=== PATIENT | male | born 1995 | race Caucasian/White ===

== ENCOUNTER 2023-10-13 00:05 | Emergency (ER) | payer SELFPAY ==
[~2023-10-13] VITALS: Ht 177.8 cm; Wt 81.8 kg
[2023-10-13 00:11] VITALS: TEMP 98.2
[2023-10-13] MEDS ORDERED: NS 1,000 ML IV ONE (00:45)
[2023-10-13] MEDS ORDERED: Ondansetron 4 MG/2 ML VIAL IV ONE (00:45)
[2023-10-13] MEDS ORDERED: Meclizine 25 MG TAB PO ONE (00:45)
[2023-10-13 01:22] LABS: BASO # 0.1 K/mm3 (0.0-0.2); BASO % 0.5 % (0.0-2.0); EOS # 0.3 K/mm3 (0.0-0.7); EOS % 3.4 % (0.0-4.0); GRAN # 5.6 K/mm3 (1.4-6.5); GRAN % 58.2 % (42.2-75.2); HEMATOCRIT 39.5 % (42.0-52.0); HEMOGLOBIN 13.4 g/dl (13.5-18.0); LYMPH # 2.7 K/mm3 (1.2-3.4); LYMPH % 27.9 % (20.0-51.0); MEAN CELL VOLUME 84 fl (80.0-100.0); MEAN CORPUSCULAR HEMOGLOBIN 28 pg (27-31); MEAN CORPUSCULAR HGB CONC 34 g/dl (33.0-37.0); MEAN PLATELET VOLUME 8.6 fl (7.4-10.4); MONO # 0.9 K/mm3 (0.1-0.6); MONO % 9.5 % (1.7-9.3); PLATELET COUNT 278 K/mm3 (130-400); RED BLOOD COUNT 4.73 M/mm3 (4.20-5.60); REDCELL DISTRIBUTION WIDTH-CV 12.8 % (11.5-14.5)
[2023-10-13 01:23] LABS: ALBUMIN 3.6 gm/dL (3.5-5.0); BILIRUBIN,TOTAL 0.3 mg/dL (0.2-1.2); CALCIUM 9.5 mg/dL (8.4-10.2); CREATININE, serum 0.79 mg/dL (0.72-1.25); POTASSIUM 3.7 mmol/L (3.5-4.5); TOTAL PROTEIN 6.4 gm/dL (6.2-8.1)
[2023-10-13] MEDS ORDERED: ANTIVERT 25MG25 MG PO (01:45)
[2023-10-13 02:07] VITALS: BP 126/78; PULSE 89
== END 2023-10-13 02:10 | disposition home or self-care (01) ==
LOC: COL.ER 00:05
PROVIDERS: Nurse Practitioner
DX: R42 Dizziness and giddiness (principal); R11.0 Nausea
CPT/HCPCS: J2405; J7030